=== PATIENT | male | born 1975 | race Caucasian/White ===

== ENCOUNTER 2017-10-23 18:24 | Emergency (ER) | payer MEDICARE, MEDICAID, SELFPAY ==
[2017-10-23 19:56] VITALS: BP 115/85; PULSE 67; RESP 18; RESP 20; TEMP 36.7; TEMP 37; O2SAT 67; O2SAT 98; BMI 56.7
--- NOTE | 2017-10-23 20:04 | HMH.EDUTC ---
[facility] [place] Clinical Impression: Dental abscess Disposition: Home, Self-Care Condition on Discharge: Good Instructions: Tooth Decay, DI for Tooth Abscess, DI for Fractured Tooth Additional Instructions: Take medication as prescribed Call tomorrow and try to get appointment for dentist Return if needed If you began to have worsening of swelling or streaks or fever go straight to ER Follow up with family doctor/dentist Prescriptions: Ibuprofen [Ibuprofen 800mg Tab] 800 mg PO Q6HP PRN #20 tab PRN Reason: Moderate Pain Penicillin V Potassium 500 mg PO QID #28 tab Referrals: Amee Rodriguez [Primary Care Provider] - Javad Mistry [Referring] - Time of Disposition: :18 Medical Decision Making - Medical Records Medical records reviewed: Yes: I reviewed the patient's medical records. Vital Signs: 10/23/17 19:56 Temperature 98.1 F Temperature Source Oral Pulse Rate [Radial] 67 Respiratory Rate 20 Blood Pressure [Right Arm] 115/85 Blood Pressure Mean [Right Arm] 95 Blood Pressure Source [Right Arm] Automatic Cuff Blood Pressure Position [Right Arm] Sitting 02 Sat by Pulse Oximetry 67 L Oxygen Delivery Method Room Air - Bubba Inquiry Pt receiving controlled substance: No Bubba was queried for this patient: No [facility] [place] - General Stated complaint: dental pain Mode of Arrival: Ambulatory Source of Information: Patient HEENT Symptoms (Recalled from RN notes): Yes (DENTAL) Resp Symptoms (Recalled from RN notes): No Skin Symptoms (Recalled from RN notes): No MS Symptoms (Recalled from RN notes): No Functional Status (Recalled from RN notes): N/A - History of Present Illness Provider Complaint: Patient state that he has several rotten and broken teeth State that he is starting to get an abcess on his left upper top tooth States that area is sore and begining to have throbbing like pain States that he has had dental abcessess in the past and needs to have dental work but does not have dental insurance and not been able to afford to get his teeth fixed - Related Data Previous Rx's Medication Instructions Recorded Ibuprofen [Ibuprofen 800mg Tab] 800 mg PO Q6HP PRN #20 tab 10/23/17 Penicillin V Potassium 500 mg PO QID #28 tab 10/23/17 Allergies Allergy/AdvReac Type Severity Reaction Status Date / Time No Known Allergies Allergy Unverified 08/30/17 15:26 - Worker's Comp Is this a Worker's Comp case?: No Is this an H Worker's Comp?: No Is this a [place] Worker's Comp?: No [facility] History I have reviewed the patient's past medical history: Yes Medical History: Denies:: Diabetes Mellitus Type 1 Amputation: No Fractures: No - *Social History Educational Level: Completed Grade School Smoking Status: Current every day smoker Tobacco Type: cigarettes # Packs/Day (cigarettes): 1 Alcohol Intake: never - Psychiatric History Expresses thoughts of harming self/others: None Suicide Plan Description: No Plan ROS Obtained: Yes All systems reviewed & no additional complaints - ENT Ears, Nose, Mouth, and Throat: Reports dental pain Physical Exam - General General appearance: alert, in no apparent distress - Expanded ENT Exam Teeth exam: Present: dental caries, fractured tooth #, dental tenderness #, other (multiple dental caries, multiple broken teeth, mild swelling and soreness in left upper jaw) - Respiratory Respiratory exam: Present: normal lung sounds bilaterally. Absent: respiratory distress - Cardiovascular Cardiovascular exam: Present: regular rate, normal rhythm. Absent: JVD - Neurological Exam Neurological exam: Present: alert, oriented X3
--- NOTE | 2017-10-23 20:10 | PC.NURSE ---
PT WAS OFFERED DENTAL BALLS BUT ADVISED THAT HE ALREADY HAD SOME AT HOME AND DIDN'T WANT ANYMORE.
--- NOTE | 2017-10-23 20:11 | ED_ITS ---
[facility] [place]: Dental abscess Disposition: Home, Self-Care Condition on Discharge: Good Instructions: Tooth Decay, DI for Tooth Abscess, DI for Fractured Tooth Additional Instructions: Take medication as prescribed Call tomorrow and try to get appointment for dentist Return if needed If you began to have worsening of swelling or streaks or fever go straight to ER Follow up with family doctor/dentist Prescriptions: Ibuprofen [Ibuprofen 800mg Tab] 800 mg PO Q6HP PRN #20 tab PRN Reason: Moderate Pain Penicillin V Potassium 500 mg PO QID #28 tab Referrals: Amee Rodriguez [Primary Care Provider] - Javad Mistry [Referring] - Time of Disposition: :18 Medical Decision Making - Medical Records Medical records reviewed: Yes: I reviewed the patient's medical records. Vital Signs: 10/23/17 19:56 Temperature 98.1 F Temperature Source Oral Pulse Rate [Radial] 67 Respiratory Rate 20 Blood Pressure [Right Arm] 115/85 Blood Pressure Mean [Right Arm] 95 Blood Pressure Source [Right Arm] Automatic Cuff Blood Pressure Position [Right Arm] Sitting 02 Sat by Pulse Oximetry 67 L Oxygen Delivery Method Room Air - Bubba Inquiry Pt receiving controlled substance: No Bubba was queried for this patient: No [facility] [place] - General Stated complaint: dental pain Mode of Arrival: Ambulatory Source of Information: Patient HEENT Symptoms (Recalled from RN notes): Yes (DENTAL) Resp Symptoms (Recalled from RN notes): No Skin Symptoms (Recalled from RN notes): No MS Symptoms (Recalled from RN notes): No Functional Status (Recalled from RN notes): N/A - History of Present Illness Provider Complaint: Patient state that he has several rotten and broken teeth State that he is starting to get an abcess on his left upper top tooth States that area is sore and begining to have throbbing like pain States that he has had dental abcessess in the past and needs to have dental work but does not have dental insurance and not been able to afford to get his teeth fixed - Related Data Previous Rx's Medication Instructions Recorded Ibuprofen [Ibuprofen 800mg Tab] 800 mg PO Q6HP PRN #20 tab 10/23/17 Penicillin V Potassium 500 mg PO QID #28 tab 10/23/17 Allergies Allergy/AdvReac Type Severity Reaction Status Date / Time No Known Allergies Allergy Unverified 08/30/17 15:26 - Worker's Comp Is this a Worker's Comp case?: No Is this an H Worker's Comp?: No Is this a [place] Worker's Comp?: No [facility] History I have reviewed the patient's past medical history: Yes Medical History: Denies:: Diabetes Mellitus Type 1 Amputation: No Fractures: No - *Social History Educational Level: Completed Grade School Smoking Status: Current every day smoker Tobacco Type: cigarettes # Packs/Day (cigarettes): 1 Alcohol Intake: never - Psychiatric History Expresses thoughts of harming self/others: None Suicide Plan Description: No Plan ROS Obtained: Yes All systems reviewed & no additional complaints - ENT Ears, Nose, Mouth, and Throat: Reports dental pain Physical Exam - General General appearance: alert, in no apparent distress - Expanded ENT Exam Teeth exam: Present: dental caries, fractured tooth #, dental tenderness #, other (multiple dental caries, multiple broken teeth, mild swelling and soreness in
[2017-10-23 20:22] VITALS: BP 115/85; PULSE 67; RESP 20; TEMP 37; O2SAT 98
== END 2017-10-23 20:25 | disposition home or self-care (01) ==
PROVIDERS: Emergency Provider Nurse Practitioner; Family Provider Family Medicine; PCP Family Medicine
DX: K04.7 Periapical abscess without sinus (principal); F17.210 Nicotine dependence, cigarettes, uncomplicated; K02.9 Dental caries, unspecified
CPT/HCPCS: G0463; 99202

== ENCOUNTER 2017-11-27 20:37 | Emergency (ER) | payer MEDICARE, MEDICAID, SELFPAY ==
[2017-11-27 21:07] VITALS: BP 110/62; PULSE 62; RESP 18; TEMP 36.9; O2SAT 100; BMI 26.4
--- NOTE | 2017-11-27 21:07 | HMH.EDUTC ---
[facility] [place]: Pain, dental Disposition: Home, Self-Care Condition on Discharge: Good Prescriptions: Ibuprofen [Ibuprofen 800mg Tab] 800 mg PO Q6HP PRN 15 Days #60 tab PRN Reason: Moderate Pain Penicillin V Potassium 500 mg PO TID 10 Days #30 tab Referrals: Amee Rodriguez [Primary Care Provider] - Time of Disposition: 21:17 Medical Decision Making - Bubba Inquiry Pt receiving controlled substance: No [facility] [place] - General Stated complaint: teeth pain Time Seen by Provider: 11/27/17 21:07 - History of Present Illness Provider Complaint: Patient has multiple decayed teeth and is requesting antibiotics and motrin. He is trying to get money together to have teeth pulled by Dr Mistry. Location: mouth Treatments prior to arrival: none - Related Data Home Medications Medication Instructions Recorded Confirmed Gabapentin [Gabapentin 800mg Tab] 800 mg PO DAILY 11/27/17 11/27/17 Omeprazole [Omeprazole 20mg 20 mg PO DAILY 11/27/17 11/27/17 Capsule] Quetiapine Fumarate [Quetiapine 50 mg PO HS 11/27/17 11/27/17 Fumarate] Previous Rx's Medication Instructions Recorded Ibuprofen [Ibuprofen 800mg Tab] 800 mg PO Q6HP PRN 15 Days #60 tab 11/27/17 Penicillin V Potassium 500 mg PO TID 10 Days #30 tab 11/27/17 Allergies Allergy/AdvReac Type Severity Reaction Status Date / Time No Known Allergies Allergy Unverified 08/30/17 15:26 [facility] History I have reviewed the patient's past medical history: Yes Medical History: Denies:: Diabetes Mellitus Type 1 Amputation: No Fractures: No - Social History Smoking Status: Current every day smoker Tobacco Type: cigarettes # Packs/Day (cigarettes): 1 Alcohol Intake: never ROS Obtained: Yes All systems reviewed & no additional complaints - ENT Ears, Nose, Mouth, and Throat: Reports dental pain Physical Exam - General General appearance: alert, in no apparent distress - Head Head exam: atraumatic - Expanded ENT Exam Teeth exam: Present: dental caries, fractured tooth # - Neck Neck exam: Present: normal inspection - Respiratory Respiratory exam: Present: normal lung sounds bilaterally - Cardiovascular Cardiovascular exam: Present: regular rate, normal rhythm - Neurological Exam Neurological exam: Present: alert, oriented X3 - Psychiatric Psychiatric exam: Present: normal affect, normal mood - Skin Skin exam: Present: warm, dry
--- NOTE | 2017-11-27 21:14 | ED_ITS ---
[facility] [place]: Pain, dental Disposition: Home, Self-Care Condition on Discharge: Good Prescriptions: Ibuprofen [Ibuprofen 800mg Tab] 800 mg PO Q6HP PRN 15 Days #60 tab PRN Reason: Moderate Pain Penicillin V Potassium 500 mg PO TID 10 Days #30 tab Referrals: Amee Rodriguez [Primary Care Provider] - Time of Disposition: 21:17 Medical Decision Making - Bubba Inquiry Pt receiving controlled substance: No [facility] [place] - General Stated complaint: teeth pain Time Seen by Provider: 11/27/17 21:07 - History of Present Illness Provider Complaint: Patient has multiple decayed teeth and is requesting antibiotics and motrin. He is trying to get money together to have teeth pulled by Dr Mistry. Location: mouth Treatments prior to arrival: none - Related Data Home Medications Medication Instructions Recorded Confirmed Gabapentin [Gabapentin 800mg Tab] 800 mg PO DAILY 11/27/17 11/27/17 Omeprazole [Omeprazole 20mg 20 mg PO DAILY 11/27/17 11/27/17 Capsule] Quetiapine Fumarate [Quetiapine 50 mg PO HS 11/27/17 11/27/17 Fumarate] Previous Rx's Medication Instructions Recorded Ibuprofen [Ibuprofen 800mg Tab] 800 mg PO Q6HP PRN 15 Days #60 tab 11/27/17 Penicillin V Potassium 500 mg PO TID 10 Days #30 tab 11/27/17 Allergies Allergy/AdvReac Type Severity Reaction Status Date / Time No Known Allergies Allergy Unverified 08/30/17 15:26 [facility] History I have reviewed the patient's past medical history: Yes Medical History: Denies:: Diabetes Mellitus Type 1 Amputation: No Fractures: No - Social History Smoking Status: Current every day smoker Tobacco Type: cigarettes # Packs/Day (cigarettes): 1 Alcohol Intake: never ROS Obtained: Yes All systems reviewed & no additional complaints - ENT Ears, Nose, Mouth, and Throat: Reports dental pain Physical Exam - General General appearance: alert, in no apparent distress - Head Head exam: atraumatic - Expanded ENT Exam Teeth exam: Present: dental caries, fractured tooth # - Neck Neck exam: Present: normal inspection - Respiratory Respiratory exam: Present: normal lung sounds bilaterally - Cardiovascular Cardiovascular exam: Present: regular rate, normal rhythm - Neurological Exam Neurological exam: Present: alert, oriented X3 - Psychiatric Psychiatric exam: Present: normal affect, normal mood - Skin Skin exam: Present: warm, dry
[2017-11-27 21:24] VITALS: BP 108/68; PULSE 65; RESP 16; TEMP 37; O2SAT 100
== END 2017-11-27 21:25 | disposition home or self-care (01) ==
PROVIDERS: Emergency Provider Physician Assistant; Family Provider Family Medicine; PCP Family Medicine
DX: K08.89 Other specified disorders of teeth and supporting structures (principal)
CPT/HCPCS: 99201

== ENCOUNTER 2018-03-03 08:18 | Observation (INO) ==
--- NOTE | 2018-03-03 09:46 | Emergency Department Note ---
ED Disposition Clinical Impression: Headache Qualifiers: Headache type: unspecified Headache chronicity pattern: acute headache Intractability: intractable Qualified Code(s): R51 - Headache Disposition: Still a Patient Condition on Discharge: Fair Referrals: Amee Rodriguez [Primary Care Provider] - - Critical Care Critical Care Time: No Attestation: On 03/03/18, the high probability of a clinically significant, sudden or life threatening deterioration of the following system(s) required my full and direct attention, intervention and personal management. The time I documented below is in addition to time spent performing reported procedures but includes the following listed in this critical care notation. Medical Decision Making - Bubba Inquiry Pt receiving controlled substance: Yes Bubba was queried for this patient: Yes Reference #:: [id number] Risks and benefits of using a controlled substance: were not discussed with pt by me Comment: 8 rxs. last rx 14 suboxone on 02/22/18 Vital Signs: 03/03/18 08:19 03/03/18 11:41 03/03/18 12:02 Temperature 98.0 F Temperature Source Oral Pulse Rate [Right Brachial] 64 70 69 Respiratory Rate 16 20 20 Blood Pressure [Left Arm] 141/87 140/87 143/81 Blood Pressure Mean [Left Arm] 105 104 101 Blood Pressure Source [Left Arm] Automatic Cuff Automatic Cuff Automatic Cuff Blood Pressure Position [Left Arm] Sitting Sitting Sitting 02 Sat by Pulse Oximetry 100 100 99 Oxygen Delivery Method Room Air Room Air Room Air 03/03/18 13:33 03/03/18 14:26 Temperature 98.0 F Temperature Source Oral Pulse Rate [Right Brachial] 69 60 Respiratory Rate 20 18 Blood Pressure [Left Arm] 164/90 126/73 Blood Pressure Mean [Left Arm] 114 90 Blood Pressure Source [Left Arm] Automatic Cuff Automatic Cuff Blood Pressure Position [Left Arm] Sitting Supine 02 Sat by Pulse Oximetry 97 96 Oxygen Delivery Method Room Air Room Air - Lab Data Lab Results 03/03/18 09:55: Lactic Acid 1.0 03/03/18 10:40: CSF Volume 3.25, CSF Appearance Clear, CSF WBC 5, CSF RBC 188, CSF Mononuclear WBCs % 0, CSF Polynuclear WBCs % 100 03/03/18 10:40: CSF Glucose 60, CSF Total Protein 59.8 H Orders (Tests/Meds): ED MEDICATIONS Discontinued Medications Generic Name Dose Route Start Last Admin Trade Name Freq PRN Reason Stop Dose Admin Hydromorphone HCl 1 mg 03/03/18 09:30 03/03/18 10:16 Dilaudid 2mg/Ml Syringe IV 03/03/18 09:31 1 mg ONCE ONE Administration Hydromorphone HCl 1 mg 03/03/18 10:34 03/03/18 11:39 Dilaudid 2mg/Ml Syringe IV 03/03/18 10:35 1 mg ONCE ONE Administration Hydromorphone HCl 1 mg 03/03/18 12:44 03/03/18 13:10 Dilaudid 2mg/Ml Syringe IV 03/03/18 12:45 1 mg ONCE ONE Administration Hydromorphone HCl 1 mg 03/03/18 15:22 03/03/18 15:30 Dilaudid 2mg/Ml Syringe IV 03/03/18 15:23 1 mg ONCE ONE Administration Iopamidol 100 ml 03/03/18 13:22 03/03/18 13:23 [id number]; 100ml Vial IV 03/03/18 13:23 100 ml ONCE ONE Administration Ondansetron HCl 4 mg 03/03/18 09:30 03/03/18 10:16 Zofran 4mg/2ml Vial IV 03/03/18 09:31 4 mg ONCE ONE Administration Sodium Chloride 10 ml 03/03/18 13:22 03/03/18 13:23 Rad-Saline Flush 10ml Syringe IV 03/03/18 13:23 10 ml ONCE ONE Administration Sodium Chloride 50 ml 03/03/18 13:22 03/03/18 13:23 Rad-Ns 50ml Vial IV 03/03/18 13:23 50 ml ONCE ONE Administration ORDERS Category Date Time Status Blood Culture Stat Micro 03/03/18 09:55 Received CSF Culture & Gram Stain Stat Micro 03/03/18 10:40 Results - CT Data CT Scan: Other (CT angiogram head and neck) Time Received: 13:[address] Reviewed: Yes: I discussed the CT results w/the radiologist Findings Narrative: Likely normal. He will discuss with Dr. Guillermo and call back. - Physician Consults Physician Consulted: Karime Time: 15:41 Reason -: Admission Comment/Response: Agrees to admit the patient to the hospital. We discussed the patient's clinical information, including history, exam, laboratory and radiology results and ED course. Per hospital procedure, I will write temporary bridge inpatient orders on the patient. Specific orders requested by the admitting physician: No narcotics. Solu-Medrol 500 mg IV. Imitrex subcu. 100% oxygen. Phenergan. - Reevaluation(s) Time: 12:40 Reevaluation #1: Complains of 8/10 pain in his posterior head and neck. Describes it as pulsatile, with each heartbeat. CT angiogram head and neck ordered after consultation with radiology. Medical Decision Narrative: Reviewed prior records. Multiple prior emergency department visits for dental pain and back pain. 3:30 PM: Headache workup is negative. The patient states his headache is still severe, between 8/10 and 10/10 depending on when he is received Dilaudid. Tisha is requesting admission overnight for pain control and observation. General Adult HPI - General Chief complaint: Headache Stated complaint: Vomiting,migraine Time Seen by Provider: 03/03/18 09:15 Mode of Arrival: Family Vehicle Limitations: No Limitations Description of Symptoms (Recalled from ER Triage Doc. by RN): PT WAS DISCHARGED EARLIER FROM THE ED AND HE IS BACK BECAUSE HE WENT HOME AND STARTED HAVING PROJECTILE VOMITING AND WORSENING OF HEADACHE - History of Present Illness HPI narrative: Awakened from a sound sleep at 4 AM by severe headache, predominantly occipital. Associated with vomiting and photophobia. No history of migraines or severe headaches. Accompanied by tisha, who provides the history. Seen in the emergency department a few hours ago. Had a negative head CT and laboratory workup. Treated with intravenous medications without effect. Tisha states that when he went home began having projectile vomiting. - Related Data Home Medications Medication Instructions Recorded Confirmed Omeprazole [Omeprazole 20mg 20 mg PO DAILY 11/27/17 03/03/18 Capsule] Quetiapine Fumarate 50 mg PO HS 11/27/17 03/03/18 Allergies Allergy/AdvReac Type Severity Reaction Status Date / Time No Known Allergies Allergy Verified 02/23/18 22:15 [facility] History I have reviewed the patient's past medical history: Yes Medical History: Denies:: Cancer, Diabetes Mellitus Type 1, Diabetes Mellitus Type 2, Internal Pacemaker, MRSA Other Surgeries: No: Pacemaker Amputation: No Fractures: No - Social History Smoking Status: Current every day smoker Tobacco Type: cigarettes # Packs/Day (cigarettes): 1 Alcohol Intake: never Alcohol Intake Frequency:: holidays/special occasions only - Psychiatric History Expresses thoughts of harming self/others: None Suicide Plan Description: No Plan ROS Obtained: Yes All systems reviewed & no additional complaints - Constitutional Constitutional: Denies fever(s) - Eyes Eyes: Denies change in vision, Denies diplopia, Reports photophobia - Musculoskeletal Musculoskeletal: Reports neck pain - Neurologic Neurologic: Reports headache(s), Denies loss of vision, Denies numbness, Denies weakness Physical Exam - General General appearance: alert, in distress Comment: Sitting in wheelchair, tells overhead. Moaning. - Head Head exam: atraumatic, normocephalic, normal inspection - Eye Eye exam: Present: normal appearance, PERRL, EOMI - ENT ENT exam: Present: normal exam, normal oropharynx, mucous membranes moist, TM's normal bilaterally, normal external ear exam - Neck Neck exam: Present: normal inspection, full ROM, trachea midline. Absent: meningismus, lymphadenopathy - Chest Chest inspection: Present: normal inspection, symmetric chest wall rise. Absent : tenderness - Respiratory Respiratory exam: Present: normal lung sounds bilaterally. Absent: respiratory distress - Cardiovascular Cardiovascular exam: Present: regular rate, normal rhythm. Absent: JVD - Abdominal Exam Abdominal exam: Present: soft, normal bowel sounds. Absent: distention, tenderness, guarding - Extremities Exam Extremities exam: Present: normal inspection, full ROM, normal capillary refill. Absent: calf tenderness - Back Exam Back exam: Present: normal inspection. Absent: tenderness - Neurological Exam Neurological exam: Present: alert, oriented X3, CN II-XII intact. Absent: motor sensory deficit - Psychiatric Psychiatric exam: Present: normal affect, normal mood - Skin Skin exam: Present: warm, dry, intact, normal color Procedures - Miscellaneous Procedure Procedure Performed: Lumbar Puncture Performed by: HECTOR BOYER Consent: Consent obtained: Verbal Consent given by: Patient Risks discussed: Bleeding, headache, infection, pain and repeat procedure Alternatives discussed: No treatment Pre-procedure details: Procedure purpose: Diagnostic Preparation: Patient was prepped and draped in usual sterile fashion Procedure details: Lumbar space: L3-L4 interspace Patient position: Sitting Needle gauge: 22 Needle type: Debra point Needle length (in): 3.5 Number of attempts: 2 Fluid appearance: Initially slightly bloody, then clear Tubes of fluid: 4 Total volume (ml): 5 Post-procedure: Puncture site: Direct pressure applied Patient tolerance of procedure: Tolerated well, no immediate complications
[2018-03-03 11:07] LABS: Total Protein,CSF 59.8 mg/dL (15-45)
[2018-03-03 11:56] LABS: Appearance,CSF Clear (Clear); Red Blood Cell,CSF 188 cells/uL (0); White Blood Cell,CSF 5 cells/uL (0-5)
[2018-03-03 13:50] LABS: Mononuclear WBCs,CSF 0 %
[2018-03-03 13:51] LABS: Polynuclear WBCs,CSF 100 %
--- NOTE | 2018-03-03 16:17 | Pharmacy Consult Notes ---
[facility] Pharmacy VTE Monitoring - Patient Demographics Admission date: 03/03/18 Report Date: 03/03/18 Time: 16:17 Allergies/Adverse Reactions: Patient Allergies No Known Allergies Allergy (Verified 02/23/18 22:15) Height: 1.83 m Weight: 90.718 kg Patient Problems: Current Active Problems Headache (Acute) - VTE Risk Clinical Trial Participant: No - Prophylaxis VTE Prophylaxis Ordered?: Yes Types of VTE Prophylaxis: TEDS Knee High
[2018-03-04 07:26] LABS: Eosinophils % 0.2 % (0.1-12.0); Hematocrit 45.6 % (42.0-52.0); Hemoglobin 14.6 g/dL (14.1-18.0); Lymphocytes % 8.7 K/mm3 (10-50); Mean Corpuscular HGB Conc 32.1 g/dL (31.8-35.4); Mean Corpuscular Hemoglobin 29.1 pg (27.0-31.2); Mean Corpuscular Volume 90.5 fl (80-94); Mean Platelet Volume 9.1 fl (7.4-10.4); Monocytes # 0.2 K/mm3 (0.1-1.0); Monocytes % 1.6 % (1.7-9.3); Neutrophils # 10.1 K/mm3 (1.8-7.8); Neutrophils % 89.4 % (37.0-80.0); Platelet Count 200 K/mm3 (142-424); Red Blood Count 5.04 M/mm3 (4.60-6.20); Red Cell Distribution Width 12.9 % (11.5-17.5); White Blood Count 11.3 K/mm3 (4.8-10.8)
[2018-03-04 07:33] LABS: Anion Gap 12.2 mEq/L (5-15); Bilirubin,Total 0.4 mg/dL (0.2-1.0); Calcium 8.3 mg/dL (8.5-10.1); Potassium 4.2 mmoL/L (3.5-5.1)
--- NOTE | 2018-03-04 08:10 | H&P/Discharge Summary ---
General - General Admission date:: 03/03/18 Discharge date: 03/04/18 *Admission Date: 03/03/18 *Chief complaint: Headache *History of present illness: 43-year-old white male with essentially negative past medical history except for a remote history of opioid dependence and abuse and current Suboxone therapy , who came to the emergency department on the day of admission with severe headache and complaining of significant headache burden and the fact that this was the worst headache of his life. Workup in the ER was thorough and extensive, including CT of the head, CTA of the vascular structures of the head and neck, spinal tap which was negative for evidence of viral or bacterial meningitis or other issues, labs and neurologic exam which were essentially normal. The patient was given several doses of Dilaudid in the ER with only minimal relief. I was called for possible admission for pain control, and agreed, recommended that the patient be discontinued from narcotics, and given Imitrex in the ER, a loading dose of Solu-Medrol and Phenergan as well as 100% oxygen. The patient was then admitted to the floor for evaluation of what sounds like new onset cluster headache versus severe migraine. [facility] History I have reviewed the patient's past medical history: Yes Medical History: Denies:: Cancer, Diabetes Mellitus Type 1, Diabetes Mellitus Type 2, Internal Pacemaker, MRSA Other Surgeries: No: Pacemaker Amputation: No Fractures: No - *Social History Educational Level: Completed High School Smoking Status: Current every day smoker Tobacco Type: cigarettes # Packs/Day (cigarettes): 1 #Yrs smoked (if former smoker): 27 Alcohol Intake: current Alcohol Intake Frequency:: holidays/special occasions only Substance Use Type: unknown Last Used Substance: unknown Occupational Status: disabled Housing: house Household Members: significant other - Psychiatric History Expresses thoughts of harming self/others: None Suicide Plan Description: No Plan Review of Systems - Review of Systems Review of systems:: pertinent systems reviewed and negative unless documented below - Constitutional Reports headache(s), Denies anorexia, Denies body ache(s), Denies daytime sleepiness - Eyes Denies blind spots, Denies blurry vision, Denies change in vision - ENT Denies abnormal hearing - *Cardiovascular Denies chest pain, Denies chest pain at rest, Denies irregular heart rhythm - *Respiratory Denies chest congestion, Denies cough, Denies shortness of breath - *Gastrointestinal Denies abdominal pain, Denies change in bowel habits, Denies change in stools - *Genitourinary Denies difficulty urinating, Denies painful urination - *Musculoskeletal Denies abnormal walking, Denies joint pain, Denies limited joint movement - *Neurologic Reports headache(s), Denies abnormal walking, Denies loss of vision, Denies numbness, Denies weakness - Endocrine Denies cold intolerance, Denies excessive sweating - Hematologic/Lymphatic Denies easy bleeding, Denies easy bruising Exam Vital signs and Labs for Last 24 Hours: Temp Pulse Resp BP Pulse Ox 98.2 F 72 18 103/51 94 L 03/04/18 04:00 03/04/18 04:00 03/04/18 04:00 03/04/18 04:00 03/04/18 04:00 Laboratory Results - last 24 hr 03/03/18 09:50: ESR 2 03/03/18 09:50: C-Reactive Protein < 0.2 03/03/18 09:55: Lactic Acid 1.0 03/03/18 10:40: CSF Volume 3.25, CSF Appearance Clear, CSF WBC 5, CSF RBC 188, CSF Mononuclear WBCs % 0, CSF Polynuclear WBCs % 100 03/03/18 10:40: CSF Glucose 60, CSF Total Protein 59.8 H 03/04/18 06:30: WBC 11.3 H, RBC 5.04, Hgb 14.6, Hct 45.6, MCV 90.5, MCH 29.1, MCHC 32.1, RDW 12.9, Plt Count 200, MPV 9.1, Neut % (Auto) 89.4 H, Lymph % (Auto ) 8.7 L, [place] % (Auto) 1.6 L, Eos % (Auto) 0.2, Baso % (Auto) 0.0 L, Neut # ( Auto) 10.1 H, Lymph # (Auto) 1.0, [place] # (Auto) 0.2, Eos # (Auto) 0.0, Baso # ( Auto) 0.0 03/04/18 06:30: Sodium 137, Potassium 4.2 D, Chloride 105, Carbon Dioxide 24, Anion Gap 12.2, BUN 11, Creatinine 0.72 D, Estimated Creat Clear 170, Estimated GFR 119, Est GFR ( Amer) 144 D, Glucose 158 H, Calcium 8.3 L, Total Bilirubin 0.4, AST 17, ALT 39, Alkaline Phosphatase 59, Total Protein 6.0 L, Albumin 3.0 L, Globulin 3.0, Albumin/Globulin Ratio 1.0 L I & O for Last 24 hours: Intake & Output 03/01/18 03/02/18 03/03/18 03/04/18 11:59 11:59 11:59 11:59 Intake Total 2114 / 2114 Output Total 1000 / 1000 Balance 1114 / 1114 Weight 200 lb 200 lb Microbiology Reports for the Last 24 Hours: Microbiology 03/03/18 10:40 Cerebral Spinal Fluid Gram Stain - Final Narrative: Patient is alert. On admission his neurologic examination was normal. Normal cranial nerves, normal strength and power. Normal reflexes. Lungs clear, heart rate regular, abdomen soft. No stigmata of rash, skin disease or joint swelling. ENT exam with clear orifice and clear tympanic membranes. Hospital Course Hospital Course: Patient was admitted to the hospital, loading dose of Solu-Medrol, intravenous Phenergan, IV fluids and 1 dose of Imitrex given by injection. Patient declined the oxygen because it bothered his face. However, the above-mentioned measures dramatically improved his situation, he had 0-2 out of 10 on the pain scale through the night as compared to 6 after the Dilaudid administration. This morning he is neurologically intact. Eating well, and has a very mild posterior occipital headache. Plan will be to discharge him home on prednisone for the next week, Phenergan for as needed use, Imitrex for as needed use and follow-up with his regular physician in [place], [place]. Results Labs on day of discharge: Labs from last 24 hours 03/04/18 03/04/18 03/03/18 06:30 06:30 10:40 WBC 11.3 H RBC 5.04 Hgb 14.6 Hct 45.6 MCV 90.5 MCH 29.1 MCHC 32.1 RDW 12.9 Plt Count 200 MPV 9.1 Neut % (Auto) 89.4 H Lymph % (Auto) 8.[address] [place] % (Auto) 1.6 L Eos % (Auto) 0.2 Baso % (Auto) 0.0 L Neut # (Auto) 10.1 H Lymph # (Auto) 1.0 [place] # (Auto) 0.2 Eos # (Auto) 0.0 Baso # (Auto) 0.0 ESR Sodium 137 Potassium 4.2 D Chloride 105 Carbon Dioxide 24 Anion Gap 12.2 BUN 11 Creatinine 0.72 D Estimated Creat Clear 170 Estimated GFR 119 Est GFR ( Amer) 144 D Glucose 158 H Lactic Acid Calcium 8.3 L Total Bilirubin 0.4 AST 17 ALT 39 Alkaline Phosphatase 59 C-Reactive Protein Total Protein 6.0 L Albumin 3.0 L Globulin 3.0 Albumin/Globulin Ratio 1.0 L CSF Volume CSF Appearance CSF WBC CSF RBC CSF Mononuclear WBCs % CSF Polynuclear WBCs % CSF Glucose 60 CSF Total Protein 59.8 H 03/03/18 03/03/18 03/03/18 10:40 09:55 09:50 WBC RBC Hgb Hct MCV MCH MCHC RDW Plt Count MPV Neut % (Auto) Lymph % (Auto) [place] % (Auto) Eos % (Auto) Baso % (Auto) Neut # (Auto) Lymph # (Auto) [place] # (Auto) Eos # (Auto) Baso # (Auto) ESR Sodium Potassium Chloride Carbon Dioxide Anion Gap BUN Creatinine Estimated Creat Clear Estimated GFR Est GFR ( Amer) Glucose Lactic Acid 1.0 Calcium Total Bilirubin AST ALT Alkaline Phosphatase C-Reactive Protein < 0.2 Total Protein Albumin Globulin Albumin/Globulin Ratio CSF Volume 3.25 CSF Appearance Clear CSF WBC 5 CSF RBC 188 CSF Mononuclear WBCs % 0 CSF Polynuclear WBCs % 100 CSF Glucose CSF Total Protein 03/03/18 09:50 WBC RBC Hgb Hct MCV MCH MCHC RDW Plt Count MPV Neut % (Auto) Lymph % (Auto) [place] % (Auto) Eos % (Auto) Baso % (Auto) Neut # (Auto) Lymph # (Auto) [place] # (Auto) Eos # (Auto) Baso # (Auto) ESR 2 Sodium Potassium Chloride Carbon Dioxide Anion Gap BUN Creatinine Estimated Creat Clear Estimated GFR Est GFR ( Amer) Glucose Lactic Acid Calcium Total Bilirubin AST ALT Alkaline Phosphatase C-Reactive Protein Total Protein Albumin Globulin Albumin/Globulin Ratio CSF Volume CSF Appearance CSF WBC CSF RBC CSF Mononuclear WBCs % CSF Polynuclear WBCs % CSF Glucose CSF Total Protein DS: Diagnosis - Discharge Diagnosis (1) New onset headache Status: Acute (2) Headache Status: Acute Discharge Medications Discharge Medications: Home Medications Medication Instructions Recorded Confirmed Type Omeprazole [Omeprazole 20mg 20 mg PO DAILY 11/27/17 03/03/18 History Capsule] Quetiapine Fumarate 50 mg PO HS 11/27/17 03/03/18 History Buprenorphine HCl/Naloxone HCl 8 mg PO BID 03/03/18 03/03/18 History [Buprenorphin-Naloxon 8-2 mg Sl] Disposition Disposition: Home, Self-Care
[2018-03-04 09:17] LABS: Lymphocytes % 6 % (10-50); Monocytes % 2 % (2-9); Neutrophils % 92 % (42-76); Total Cells Counted 100
== END 2018-03-04 08:43 | disposition home or self-care (01) ==
LOC: ER 08:18 → 2ND 08:18
PROVIDERS: ADMIT Internal Medicine Adolescent Medicine; ATTEND Internal Medicine Adolescent Medicine

== ENCOUNTER 2020-07-09 18:22 | Emergency (ER) | payer MEDICARE, SELFPAY ==
[2020-07-09 18:44] VITALS: BP 120/69; PULSE 79; RESP 18; TEMP 37.1; O2SAT 98; BMI 26.1
[2020-07-09 18:59] LABS: Microscopic, Urine URINE MICROSCOPIC (MICROSCOPIC)
[2020-07-09 19:04] LABS: Appearance,Urine CLEAR (Clear); Bilirubin,Urine Negative (Negative); Blood, Urine Negative (Negative); Color,Urine YELLOW (Yellow); Glucose,Urine (UA) Negative (Negative); Ketones,Urine Negative (Negative); Leukocyte Esterase,Urine Negative (Negative); Nitrate,Urine Negative (Negative); Protein,Urine Negative (Negative); Specific Gravity, Urine >= 1.030 (1.005-1.030)
[2020-07-09 19:26] LABS: Bacteria,Urine 2+ /lpf; Mucus,Urine 2+ /lpf
--- NOTE | 2020-07-09 19:31 | PC.NURSE ---
stated she wanted pt to have out pt ultrasound done at a later date
--- NOTE | 2020-07-09 19:40 | [facility].EDGENADL ---
ED Disposition Clinical Impression: Testicular pain, right Disposition: Home, Self-Care Condition on Discharge: Good Instructions: DI for Testicular Pain Referrals: Adrian Rodriguez MD [Staff Physician] - 3 days - Critical Care Critical Care Time: No Attestation: On 07/09/20, the high probability of a clinically significant, sudden or life threatening deterioration of the following system(s) required my full and direct attention, intervention and personal management. The time I documented below is in addition to time spent performing reported procedures but includes the following listed in this critical care notation. Medical Decision Making - Medical Records Medical records reviewed: Yes: I reviewed the patient's medical records. - Bubba Inquiry Pt receiving controlled substance: No Vital Signs: 07/09/20 18:44 Temperature 98.8 F Temperature Source Oral Pulse Rate [Right Radial] 79 Respiratory Rate 18 Blood Pressure [Right Arm] 120/69 Blood Pressure Mean [Right Arm] 86 Blood Pressure Source [Right Arm] Automatic Cuff Blood Pressure Position [Right Arm] Sitting 02 Sat by Pulse Oximetry 98 Oxygen Delivery Method Room Air - Lab Data Lab Results 07/09/20 18:43: Urine Color Yellow, Urine Appearance Clear, Urine pH 6.0, Ur Specific [place] >= 1.030, Urine Protein Negative, Urine Glucose (UA) Negative, Urine Ketones Negative, Urine Blood Negative, Urine Nitrate Negative, Urine Bilirubin Negative, Urine Urobilinogen 1.0, Ur Leukocyte Esterase Negative, Urine RBC 3-5, Urine WBC 5-10, Ur Squamous Epith Cells 5-10, Urine Bacteria 2+, Urine Mucus 2+ Orders (Tests/Meds): ORDERS Category Date Time Status Urine Culture Stat Micro 07/09/20 18:43 Received Medical Decision Narrative: Urinalysis negative for infection or significant blood that would suggest obstructive uropathy. Patient denies any urethral drainage or concern for STDs. Unlikely testicular torsion given 2-year course of history. Recommended outpatient follow-up with urology for further management. Discharged home. General Adult HPI - General Chief complaint: PAIN Stated complaint: Groin Pain Time Seen by Provider: 07/09/20 19:40 Mode of Arrival: Ambulatory Limitations: No Limitations Description of Symptoms (Recalled from ER Triage Doc. by RN): Pt reports R testicluar pain. Pt states has been having pain for approx 2 years. Pt states no injury, reports pain is worse than normal today. Pt denies urinary symptoms, denies swelling or abnormalities. - History of Present Illness HPI narrative: This is a 45-year-old man with no past medical history who presents to the emergency department for right testicular pain for the last 2 years. Pain has been getting worse steadily over that time so presents here for evaluation. Of note, he is also here with his loi who is brought her daughter in for evaluation and decided to check it. He has not had any penile drainage and expresses no concern for STDs. He denies any dysuria, hematuria. No flank pain. No history of abdominal surgeries. Nothing makes his symptoms better. He feels like the symptoms are worse whenever he lifts things. 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 No fevers. He denies any pain with palpation of the testicle, and states he has not felt any masses. - Related Data Home Medications Medication Instructions Recorded Confirmed Omeprazole [Omeprazole 20mg 20 mg PO DAILY 11/27/17 07/09/20 Capsule] Quetiapine Fumarate 50 mg PO HS 11/27/17 07/09/20 Allergies Allergy/AdvReac Type Severity Reaction Status Date / Time No Known Allergies Allergy Verified 02/23/18 22:15 [facility] History - Hepatitis A Screen Drug use history?: No High risk sexual behaviors?: No History of sexually transmitted infection?: No Currently employed?: No Childcare worker?: No Do you have indoor plumbing?: Yes Do you have electricit
[2020-07-09 19:44] VITALS: BP 117/62; PULSE 72; RESP 16; TEMP 37.2; O2SAT 99
== END 2020-07-09 19:45 | disposition home or self-care (01) ==
PROVIDERS: Emergency Provider Emergency Medicine
DX: N50.811 Right testicular pain (principal); F17.210 Nicotine dependence, cigarettes, uncomplicated
CPT/HCPCS: 81001; 87086; 99281